=== PATIENT | male | born 1970 | race Caucasian/White ===

== ENCOUNTER 2017-10-20 11:52 | Emergency (ER) | payer OTHER ==
[~2017-10-20] VITALS: Ht 182.8 cm; Wt 97.5 kg
[~2017-10-20 11:52] MED LIST: ATIVAN1 MG PO; DAYPRO600 M1 PO; METOPROLOL PO; VICODIN 500 MG-1 TAB PO; ZOLOFT PO
[2017-10-20] MEDS ORDERED: KEFLEX500 M1 PO (12:15)
[2017-10-20] MEDS ORDERED: Bactroban Oint22 GM T (12:15)
[2017-10-20] MEDS ORDERED: SEPTDS PO (12:15)
== END 2017-10-20 12:28 | disposition home or self-care (01) ==
LOC: ED 11:52
DX: L02.01 Cutaneous abscess of face (principal); R03.0 Elevated blood-pressure reading, without diagnosis of hypertension; Z90.49 Acquired absence of other specified parts of digestive tract; Z79.899 Other long term (current) drug therapy; Z88.8 Allergy status to other drugs, medicaments and biological substances; Z88.6 Allergy status to analgesic agent

== ENCOUNTER → 2018-07-03 | Outpatient (CLI) | payer OTHER ==
[~2018-07-03] MED LIST changes: +Bactroban Oint22 GM T; +KEFLEX500 M1 PO; +SEPTDS PO
[2018-07-03 11:32] LABS: HEMATOCRIT 47.2 % (42.0-52.0); MEAN CELL VOLUME 93.5 fl (80.0-94.0); MEAN CORPUSCULAR HGB 31.7 pg (27.0-31.0); MEAN CORPUSCULAR HGB CONC 33.9 g/dl (33.0-37.0); MEAN PLATELET VOLUME 12.7 fl (9.6-12.3); RED BLOOD COUNT 5.05 10*6/uL (4.50-5.90); WHITE BLOOD COUNT 4.5 10*3/uL (4.8-10.8)
[2018-07-03 12:08] LABS: ALBUMIN 4.2 gm/dl (3.1-4.5); ALKALINE PHOSPHATASE 70 U/L (45-117); BUN 18 mg/dl (7-24); CHLORIDE 102 mmol/L (98-107); CHOLESTEROL 263 mg/dL (<200); CREATININE 1.04 mg/dL (0.70-1.30); HDL CHOLESTEROL 54 mg/dl (40-60); LDL CHOLESTEROL 162 mg/dL (9-159); POTASSIUM 4.3 mmol/L (3.5-5.1); SGOT/AST 13 IU/L (3-35); SGPT/ALT 35 U/L (12-78); SODIUM 138 mmol/L (136-145); TOTAL PROTEIN 7.8 gm/dL (6.4-8.2); TRIGLYCERIDES 233 mg/dl (<150); VLDL CHOLESTEROL 47 mg/dL (6-40)
[2018-07-03 12:31] LABS: VITAMIN D, 25-HYDROXY 15.1 ng/mL (30-100)
== END | disposition home or self-care (01) ==
LOC: LAB 11:10
PROVIDERS: Registered Nurse Flight
DX: R53.82 Chronic fatigue, unspecified (principal)

== ENCOUNTER → 2019-04-22 | Outpatient (CLI) | payer OTHER | END | disposition home or self-care (01) | LOC: RAD 15:05 | DX: M25.471 Effusion, right ankle (principal) ==

== ENCOUNTER 2019-12-30 12:07 | Emergency (ER) | payer OTHER ==
[~2019-12-30] VITALS: Ht 182.8 cm; Wt 97.5 kg
[2019-12-30 13:20] LABS: BASO % 0.6 % (0.0-1.0); EOS % 0.6 % (1.0-4.0); HEMATOCRIT 42.1 % (42.0-52.0); LYMPH % 21.1 % (27.0-41.0); MEAN CELL VOLUME 89.8 fl (80.0-94.0); MEAN CORPUSCULAR HGB 30.7 pg (27.0-31.0); MEAN CORPUSCULAR HGB CONC 34.2 g/dl (33.0-37.0); MEAN PLATELET VOLUME 11.9 fl (9.6-12.3); MONO # 0.5 10*3/uL (0.1-1.0); MONO % 10.4 % (3.0-9.0); NEUT # 3.2 10*3/uL (2.3-7.9); NEUT % 67.1 % (47.0-73.0); PLATELET COUNT AUTOMATED 165 10*3/uL (130-400); RED BLOOD COUNT 4.69 10*6/uL (4.50-5.90); RED CELL DISTRI WIDTH 12.4 % (0-14.5); WHITE BLOOD COUNT 4.8 10*3/uL (4.8-10.8)
[2019-12-30 13:54] LABS: ALKALINE PHOSPHATASE 65 U/L (45-117); BUN 16 mg/dl (7-24); CHLORIDE 103 mmol/L (98-107); CREATININE 0.97 mg/dL (0.70-1.30); POTASSIUM 3.9 mmol/L (3.5-5.1); SGOT/AST 16 IU/L (3-35); SGPT/ALT 38 U/L (12-78); SODIUM 136 mmol/L (136-145); TOTAL PROTEIN 7.8 gm/dL (6.4-8.2)
[2019-12-30 13:56] LABS: ETHYL ALCOHOL < 3.0 mg/dl (<3); TROPONIN I < 0.015 ng/ml (<0.045)
== END 2019-12-30 14:17 | disposition home or self-care (01) ==
LOC: ED 12:07
PROVIDERS: Emergency Medicine
DX: R00.2 Palpitations (principal); Z88.8 Allergy status to other drugs, medicaments and biological substances

== ENCOUNTER 2020-03-17 16:13 | Emergency (ER) | payer OTHER ==
[~2020-03-17] VITALS: Ht 182.8 cm; Wt 93.0 kg
[2020-03-17] MEDS ORDERED: LIDEX 0.05% CRE15 GM T (17:35)
[2020-03-17] MEDS ORDERED: PREDNISONE50 MG PO (17:35)
== END 2020-03-17 17:58 | disposition home or self-care (01) ==
LOC: ED 16:13
DX: L25.9 Unspecified contact dermatitis, unspecified cause (principal); Z88.8 Allergy status to other drugs, medicaments and biological substances; Z79.899 Other long term (current) drug therapy

== ENCOUNTER 2021-03-19 17:42 | Inpatient (IN) | payer OTHER ==
[~2021-03-19] VITALS: Ht 182.8 cm; Wt 93.0 kg
[2021-03-19] VITALS (13 sets, daily range): BP systolic 81–113; BP diastolic 38–76
[~2021-03-19 17:42] MED LIST changes: +LIDEX 0.05% CRE15 GM T; +PREDNISONE50 MG PO
[2021-03-19 18:12] LABS: BASO % 0.5 % (0.0-1.0); EOS % 0.5 % (1.0-4.0); HEMATOCRIT 39.6 % (42.0-52.0); LYMPH # 1.6 10*3/uL (1.3-4.4); LYMPH % 19.9 % (27.0-41.0); MEAN CELL VOLUME 90.6 fl (80.0-94.0); MEAN CORPUSCULAR HGB 30.9 pg (27.0-31.0); MEAN CORPUSCULAR HGB CONC 34.1 g/dl (33.0-37.0); MEAN PLATELET VOLUME 12.3 fl (9.6-12.3); MONO # 0.7 10*3/uL (0.1-1.0); MONO % 8.8 % (3.0-9.0); NEUT # 5.7 10*3/uL (2.3-7.9); NEUT % 70.2 % (47.0-73.0); PLATELET COUNT AUTOMATED 174 10*3/uL (130-400); RED BLOOD COUNT 4.37 10*6/uL (4.50-5.90); RED CELL DISTRI WIDTH 12.4 % (0-14.5); WHITE BLOOD COUNT 8.1 10*3/uL (4.8-10.8)
[2021-03-19 18:33] LABS: ALBUMIN 3.8 gm/dl (3.1-4.5); ALKALINE PHOSPHATASE 83 U/L (45-117); BUN 15 mg/dl (7-24); CHLORIDE 107 mmol/L (98-107); CREATININE 1.06 mg/dL (0.70-1.30); POTASSIUM 3.4 mmol/L (3.5-5.1); SGOT/AST 150 IU/L (3-35); SGPT/ALT 180 U/L (12-78); SODIUM 142 mmol/L (136-145); TROPONIN I 0.042 ng/ml (<0.045)
[2021-03-19 19:11] LABS: ACT PARTIAL THROMBO TIME 27.8 SECONDS (20.0-32.1)
[2021-03-20 00:12] VITALS: BP 122/88
[2021-03-20] MEDS ORDERED: LISINOPRIL10 M1 PO (01:40)
[2021-03-20] MEDS ORDERED: ATORVASTATIN CA20 M1 PO (01:41)
[2021-03-20] MEDS ORDERED: ALLOPURINOL300 MG PO (01:43)
[2021-03-20] MEDS ORDERED: Lopressor25 MG PO (01:44)
[2021-03-20 06:16] LABS: ALBUMIN 3.4 gm/dl (3.1-4.5); ALKALINE PHOSPHATASE 66 U/L (45-117); BUN 11 mg/dl (7-24); CHLORIDE 109 mmol/L (98-107); CHOLESTEROL 170 mg/dL (<200); CREATININE 0.91 mg/dL (0.70-1.30); LDL CHOLESTEROL 79 mg/dL (9-159); SGOT/AST 65 IU/L (3-35); SGPT/ALT 134 U/L (12-78); SODIUM 142 mmol/L (136-145); TOTAL PROTEIN 6.3 gm/dL (6.4-8.2); TRIGLYCERIDES 144 mg/dl (<150)
[2021-03-20 06:23] LABS: BASO % 0.8 % (0.0-1.0); EOS % 0.8 % (1.0-4.0); HEMATOCRIT 37.5 % (42.0-52.0); LYMPH # 1.2 10*3/uL (1.3-4.4); LYMPH % 25.3 % (27.0-41.0); MEAN CELL VOLUME 93.1 fl (80.0-94.0); MEAN CORPUSCULAR HGB 30.8 pg (27.0-31.0); MEAN CORPUSCULAR HGB CONC 33.1 g/dl (33.0-37.0); MEAN PLATELET VOLUME 12.8 fl (9.6-12.3); MONO # 0.5 10*3/uL (0.1-1.0); MONO % 10.3 % (3.0-9.0); NEUT % 62.6 % (47.0-73.0); PLATELET COUNT AUTOMATED 127 10*3/uL (130-400); RED BLOOD COUNT 4.03 10*6/uL (4.50-5.90); RED CELL DISTRI WIDTH 12.9 % (0-14.5); WHITE BLOOD COUNT 4.8 10*3/uL (4.8-10.8)
[2021-03-20 06:25] LABS: POTASSIUM 4.4 mmol/L (3.5-5.1)
[2021-03-20 06:26] LABS: TROPONIN I 0.092 ng/ml (<0.045)
[2021-03-20 08:00] VITALS: BP 128/78
[2021-03-20 12:00] VITALS: BP 121/71
[2021-03-20] MEDS ORDERED: CARDIZEM CD120 M2 PO (12:52)
== END 2021-03-20 14:25 | disposition home or self-care (01) | DRG 281 ==
LOC: ED 17:42 → EDHOLD 21:54 → 4E 22:32
PROVIDERS: Internal Medicine; ADMIT Internal Medicine; ATTEND Internal Medicine
DX: I21.4 Non-ST elevation (NSTEMI) myocardial infarction (principal); I47.1 Supraventricular tachycardia; I95.9 Hypotension, unspecified; D64.9 Anemia, unspecified; E87.6 Hypokalemia; R73.9 Hyperglycemia, unspecified; E78.2 Mixed hyperlipidemia; M1A.9XX0 Chronic gout, unspecified, without tophus (tophi); I10 Essential (primary) hypertension; Z90.49 Acquired absence of other specified parts of digestive tract; Z80.0 Family history of malignant neoplasm of digestive organs; Z80.3 Family history of malignant neoplasm of breast; Z88.8 Allergy status to other drugs, medicaments and biological substances; Z79.899 Other long term (current) drug therapy

== ENCOUNTER 2022-09-23 16:26 | Emergency (ER) | payer OTHER ==
[~2022-09-23 16:26] MED LIST changes: +ALLOPURINOL300 MG PO; +ATORVASTATIN CA20 M1 PO; +CARDIZEM CD120 M2 PO; +LISINOPRIL10 M1 PO; +Lopressor25 MG PO
[2022-09-23] MEDS ORDERED: AMLODIPINE BESYL5 MG PO (17:09)
[2022-09-23] MEDS ORDERED: OMEPRAZOLE MAGN20 MG PO (17:09)
[2022-09-23] MEDS ORDERED: LISINOPRIL20 MG PO (17:10)
[2022-09-23] MEDS ORDERED: ALPRAZOLAM XR0.5 MG PO (17:38)
== END 2022-09-23 17:44 | disposition home or self-care (01) ==
LOC: ED 16:26
DX: F41.9 Anxiety disorder, unspecified (principal); R00.2 Palpitations; Z88.8 Allergy status to other drugs, medicaments and biological substances; Z79.899 Other long term (current) drug therapy; Z90.49 Acquired absence of other specified parts of digestive tract

== ENCOUNTER 2023-09-25 11:01 | Emergency (ER) | payer OTHER ==
[~2023-09-25] VITALS: Ht 177.8 cm; Wt 95.3 kg
[~2023-09-25 11:01] MED LIST changes: +ALPRAZOLAM XR0.5 MG PO; +AMLODIPINE BESYL5 MG PO; +LISINOPRIL20 MG PO; +OMEPRAZOLE MAGN20 MG PO
[2023-09-25] MEDS ORDERED: Meclizine Hydrochloride 25 MG TAB PO ONE (11:15)
[2023-09-25] MEDS ORDERED: SODIUM CHLORIDE 0.9% 1,000 ML IV ONE (11:15)
[2023-09-25 11:32] LABS: BASO % 0.7 % (0.0-1.0); EOS # 0.1 10*3/uL (0.0-0.4); EOS % 1.1 % (1.0-4.0); LYMPH # 1.1 10*3/uL (1.3-4.4); LYMPH % 19.4 % (27.0-41.0); MEAN CELL VOLUME 94.5 fl (80.0-94.0); MEAN CORPUSCULAR HGB 31.4 pg (27.0-31.0); MEAN CORPUSCULAR HGB CONC 33.3 g/dl (33.0-37.0); MONO # 0.6 10*3/uL (0.1-1.0); NEUT # 3.9 10*3/uL (2.3-7.9); NEUT % 67.6 % (47.0-73.0); PLATELET COUNT AUTOMATED 168 10*3/uL (130-400); RED BLOOD COUNT 4.55 10*6/uL (4.50-5.90); RED CELL DISTRI WIDTH 12.9 % (0-14.5); WHITE BLOOD COUNT 5.7 10*3/uL (4.8-10.8)
[2023-09-25 11:51] LABS: BUN 22 mg/dl (9-23); CHLORIDE 101 mmol/L (98-107); POTASSIUM 4.4 mmol/L (3.4-5.1)
[2023-09-25] MEDS ORDERED: GOOD NEIGHBOR M25 M1 PO (13:25)
== END 2023-09-25 13:58 | disposition home or self-care (01) ==
LOC: ED 11:01
PROVIDERS: Nurse Practitioner
DX: H81.10 Benign paroxysmal vertigo, unspecified ear (principal); R06.02 Shortness of breath; I10 Essential (primary) hypertension; F41.9 Anxiety disorder, unspecified; Z88.8 Allergy status to other drugs, medicaments and biological substances; Z90.49 Acquired absence of other specified parts of digestive tract